=== PATIENT | female | born 1940 | race Caucasian/White ===

== ENCOUNTER → 2017-05-23 | Outpatient (CLI) | payer MEDICARE, OTHER ==
[~2017-05-23] MED LIST: ACTOPLUS MET PO; Bactrim,Septra DS 80 PO; Coumadin,Jantoven PO; Feosol PO; Flexeril PO; Lipitor PO; Norvasc PO; OXYCONTIN10 MG; Percocet PO; Tums PO; Vicodin,Norco 5/325 PO; Victoza SC; Vitamin D PO; Ziac 10/6.25 PO; Zoloft PO
== END | disposition home or self-care (01) ==
LOC: CDC 12:02
DX: Z01.810 Encounter for preprocedural cardiovascular examination (principal); K64.8 Other hemorrhoids; Z88.8 Allergy status to other drugs, medicaments and biological substances
CPT/HCPCS: 93000

== ENCOUNTER 2017-05-31 10:31 | Day surgery (SDC) | payer OTHER ==
[~2017-05-31] VITALS: Ht 162.6 cm; Wt 73.0 kg
[~2017-05-31 10:31] MED LIST changes: +AMLODIPINE BESY10 MG PO; +GABAPENTIN600 MG PO; +HYDROCHLOROTH12.5 M3 PO; +IMODIUM A-D2 M2 PO; +LIPITOR20 MG PO; +LOSARTAN POTASS50 MG PO; +METFORMIN HCL1000 MG PO; +NADOLOL40 MG PO; +OMEPRAZOLE40 M1 PO; +VICTOZA0.6 MG/0.1 SC; +ZOLOFT100 MG PO
[2017-05-31 11:10] LABS: POINT-OF-CARE METER ID UU13113694
[2017-05-31 11:30] VITALS: BP 127/79
[2017-05-31] MEDS ORDERED: NORCO 5/3251 TABLET PO (13:25)
[2017-05-31 13:49] LABS: POINT-OF-CARE METER ID UU13113675
[2017-05-31 14:50] VITALS: BP 112/62
[2017-05-31 15:50] VITALS: BP 113/65
[2017-05-31 17:16] VITALS: BP 130/68
== END 2017-05-31 17:11 | disposition home or self-care (01) ==
LOC: SDC 10:31
PROVIDERS: Surgery
PROC: 06LY0CC Occlusion of Hemorrhoidal Plexus with Extraluminal Device, Open Approach (ICD-10-PCS; principal; 2017-05-31)
DX: K64.8 Other hemorrhoids (principal); I10 Essential (primary) hypertension; E11.9 Type 2 diabetes mellitus without complications; K74.60 Unspecified cirrhosis of liver; D69.6 Thrombocytopenia, unspecified; K75.81 Nonalcoholic steatohepatitis (NASH); R32 Unspecified urinary incontinence; E78.5 Hyperlipidemia, unspecified; R15.9 Full incontinence of feces; Z68.28 Body mass index [BMI] 28.0-28.9, adult; E66.3 Overweight; Z79.84 Long term (current) use of oral hypoglycemic drugs; Z79.899 Other long term (current) drug therapy; Z82.49 Family history of ischemic heart disease and other diseases of the circulatory system; Z80.9 Family history of malignant neoplasm, unspecified
CPT/HCPCS: 82948; J0131; J0330; J0360; J1100; J2250; J2405; J3010; J7120; S0020

== ENCOUNTER 2017-05-31 22:37 | Inpatient (IN) | payer OTHER ==
[~2017-05-31] VITALS: Ht 162.6 cm; Wt 79.9 kg
[~2017-05-31 22:37] MED LIST changes: +NORCO 5/3251 TABLET PO
[2017-05-31 23:17] LABS: EOSINOPHIL (%) 2.3 % (0-5); EOSINOPHIL COUNT 0.1 K/uL (0-0.3); HEMATOCRIT 38.7 % (36.0-46.0); IMMATURE GRANULOCYTE (%) 0.6 % (0.0-0.7); INSTRUMENT ABS NEUTROPHIL CT 2.9 K/uL; LYMPHOCYTE COUNT 1.3 K/uL (1.0-2.8); MCH 24.5 PG (29.0-34.0); MCHC 30.5 G/DL (30.0-36.0); MCV 80.5 FL (83-99); MEAN PLAT.VOLUME 11.7 uM^3 (9.5-12.4); MONOCYTE (%) 10.5 % (3-12); MONOCYTE COUNT 0.5 K/uL (0-0.8); NEUTROPHIL (%) 59.9 % (45-76); NEUTROPHIL COUNT 2.9 K/uL (1.8-6.4); PLATELET COUNT 101 K/uL (156-360); RBC DIS.WIDTH-CV 14.9 % (11.8-14.6); RBC DIS.WIDTH-SD 43.5 % (39-53); RED BLOOD COUNT 4.81 M/uL (3.80-5.20); WHITE BLOOD COUNT 4.9 K/uL (4.1-10.2)
[2017-05-31 23:26] LABS: CHLORIDE 104 mEq/L (99-109); POTASSIUM 3.7 mEq/L (3.7-5.4); SODIUM 141 mEq/L (136-147)
[2017-05-31 23:27] LABS: GLUCOSE 238 mg/dL (70-99)
[2017-05-31 23:29] LABS: ANION GAP 14 MEQ/L (2-14)
[2017-05-31 23:31] LABS: GFR ESTIMATE (CALCULATED) > 59 mL/min/
[2017-05-31 23:32] LABS: UREA NITROGEN (BUN) 9 mg/dL (9-23)
[2017-05-31 23:37] LABS: TROP-I INTERPRETATION NEGATIVE; TROPONIN-I < 0.01 ng/mL (0.0-0.30)
[2017-06-01] VITALS (9 sets, daily range): BP systolic 103–152; BP diastolic 56–71
[2017-06-01 03:24] LABS: HDL CHOLESTEROL 25 MG/DL (Desirable>=50); LDL CHOLESTEROL 47 mg/dL (Desirable<100); NON-HDL CHOLESTEROL 79 mg/dL (Desirable<160); TOTAL CHOLESTEROL 104 mg/dL (Desirable<200); TRIGLYCERIDES 158 MG/DL (Normal: <150)
[2017-06-01 08:03] LABS: Estimated Average Glucose 298 mg/dL (70-123)
[2017-06-01 08:26] LABS: POINT-OF-CARE METER ID UU13113831
[2017-06-01 12:34] LABS: POINT-OF-CARE METER ID UU14162513
[2017-06-01 16:38] LABS: POINT-OF-CARE METER ID UU14162513
[2017-06-01 17:36] LABS: POINT-OF-CARE METER ID UU14162513
[2017-06-01 21:26] LABS: POINT-OF-CARE METER ID UU14208750
[2017-06-02 03:54] VITALS: BP 117/67
[2017-06-02 06:25] LABS: POINT-OF-CARE METER ID UU14208750
[2017-06-02 07:45] VITALS: BP 114/62
[2017-06-02 11:50] VITALS: BP 122/66
[2017-06-02] MEDS ORDERED: GLYXAMBI 25 MG1 EACH PO (13:35)
[2017-06-02 15:10] VITALS: BP 117/57
[2017-06-02 19:21] VITALS: BP 1389/73; BP 139/73
[2017-06-02 21:29] LABS: POINT-OF-CARE METER ID UU14208750
[2017-06-03 06:50] LABS: POINT-OF-CARE METER ID UU14208750
[2017-06-03 07:15] LABS: ANION GAP 10 MEQ/L (2-14); CHLORIDE 105 MEQ/L (99-109); EOSINOPHIL COUNT 0.1 K/uL (0-0.3); GFR ESTIMATE (CALCULATED) > 59 mL/min/; GLUCOSE 206 mg/dL (70-99); HEMATOCRIT 36.5 % (36.0-46.0); IMMATURE GRANULOCYTE (%) 0.6 % (0.0-0.7); INSTRUMENT ABS NEUTROPHIL CT 1.6 K/uL; LYMPHOCYTE COUNT 1.2 K/uL (1.0-2.8); MCH 25.7 PG (29.0-34.0); MCHC 31.5 G/DL (30.0-36.0); MCV 81.7 FL (83-99); MONOCYTE (%) 12.8 % (3-12); MONOCYTE COUNT 0.4 K/uL (0-0.8); NEUTROPHIL (%) 46.2 % (45-76); NEUTROPHIL COUNT 1.6 K/uL (1.8-6.4); POTASSIUM 3.5 MEQ/L (3.7-5.4); RBC DIS.WIDTH-CV 15.1 % (11.8-14.6); RBC DIS.WIDTH-SD 44.9 % (39-53); RED BLOOD COUNT 4.47 M/uL (3.80-5.20); SAMPLE HEMOLYSIS CHECK 0; SAMPLE ICTERIC CHECK 0; SAMPLE LIPEMIA CHECK 0; SODIUM 141 MEQ/L (136-147); UREA NITROGEN (BUN) 12 mg/dL (9-23); WHITE BLOOD COUNT 3.4 K/uL (4.1-10.2)
[2017-06-03 07:34] LABS: MEAN PLAT.VOLUME 11.6 uM^3 (9.5-12.4); PLAT.SUFFICIENCY DECREASED
[2017-06-03 07:39] LABS: PLATELET COUNT 70 K/uL (156-360)
[2017-06-03 12:26] VITALS: BP 119/67
[2017-06-03 16:22] VITALS: BP 120/63
[2017-06-03 19:13] VITALS: BP 111/69
[2017-06-03 23:59] VITALS: BP 119/69
[2017-06-04 04:27] VITALS: BP 129/70
[2017-06-04 07:25] VITALS: BP 115/64
[2017-06-04 11:17] LABS: POINT-OF-CARE METER ID UU14208750
[2017-06-04 11:20] VITALS: BP 108/61
[2017-06-04] MEDS ORDERED: ANTIVERT12.5 MG PO (12:20)
== END 2017-06-04 15:37 | DRG 149 ==
LOC: EME → EDBD 22:37 → EDOF 06-01 00:24 → 2EAST 06-01 01:19 → 5WEST 06-01 01:21 → 2EAST 06-01 16:32 → 5WEST 06-01 16:32 → 2EAST 06-01 20:00
PROVIDERS: Emergency Medicine; Student in an Organized Health Care Education/Training Program
DX: H81.399 Other peripheral vertigo, unspecified ear (principal); H81.90 Unspecified disorder of vestibular function, unspecified ear; S00.03XA Contusion of scalp, initial encounter; W18.30XA Fall on same level, unspecified, initial encounter; R29.6 Repeated falls; E11.65 Type 2 diabetes mellitus with hyperglycemia; K64.3 Fourth degree hemorrhoids; E78.5 Hyperlipidemia, unspecified; I10 Essential (primary) hypertension; K21.9 Gastro-esophageal reflux disease without esophagitis; F32.9 Major depressive disorder, single episode, unspecified; M19.90 Unspecified osteoarthritis, unspecified site; Z79.84 Long term (current) use of oral hypoglycemic drugs; Y92.018 Other place in single-family (private) house as the place of occurrence of the external cause
CPT/HCPCS: 70450; 70551; 71020; 80048; 80061; 82948; 83036; 84484; 85025; 93005; 93880; 97530 GP; 99281; 99285; G8978 GP CJ; G8979 CJ; J1644; J1815